=== PATIENT | female | born 1945 | race Caucasian/White ===

== ENCOUNTER → 2017-05-09 | Outpatient (CLI) | payer OTHER, MEDICARE ==
[~2017-05-09] MED LIST: ACETAMINOPHEN325 M1 PO; ALEVE220 MG PO; AMLODIPINE BESYL5 MG PO; ANTIVERT25 MG PO; ASPIRIN325 PO; B COMPLEX1 EAC1 PO; BENICAR HCT 401 EACH PO; BYSTOLIC 5 MG5 M1 PO; CALCIUM 600 +1 EA11 PO; CLOBETASOL PROP60 G3; CLONIDINE0.1 PO; CUTIVATE120 ML; FENOFIBRATE160 MG PO; KLOR-CON SPRIN10 MEQ PO; LOPRESSOR25 PO; PRILOSEC40 MG PO; VITAMIN D2000 UNIT PO; XANAX 0.25 MG0.25 MG PO; ZETIA10 MG PO; ZOFRAN ODT4 MG PO; ZPAK PO
== END ==
LOC: ULTRA 10:36
DX: E04.2 Nontoxic multinodular goiter (principal)

== ENCOUNTER → 2017-09-06 | Outpatient (CLI) | payer OTHER, MEDICARE | LOC: RAD 13:23 | DX: Z12.31 Encounter for screening mammogram for malignant neoplasm of breast (principal) ==

== ENCOUNTER → 2017-12-23 | Outpatient (CLI) | payer OTHER, MEDICARE ==
[~2017-12-23] VITALS: Ht 154.9 cm; Wt 88.9 kg
[~2017-12-23] MED LIST changes: +ALDACTONE25 MG PO; +CENTRUM SILVER1 EAC4 PO; +DEMADEX20 MG PO; +PLAVIX 75 MG TA75 M1 PO; +REPATHA SU140 MG/1 M SUBQ; +VITAMIN B-12500 MCG PO
--- NOTE | ~2017-12-23 | CATHLAB ---
[facility] [place] [address] INVASIVE PROCEDURE REPORT Name: FRANNIE MARIN Room #: [facility] [id number] Admission: 12/23/17 Attend Phys: Tulio Lyle, Discharge: Date of : 49 Date of Service: 12/27/17 0934 Report #: [id number] THIS REPORT FOR: //name// APPROVED REPORT Patient Details Patient Status: Out-Patient Room #: The patient is a 72 year-old female Event Personnel Tulio Lyle Marker Machine, Bibi Orozco, Ariel Miller Penny, Wes RN Procedures Performed Art Access - R femoral artery* 42192 Initial Mod Sed Same Phys/QHP Gr5y 201283 Left Heart Cath w/or w/o Coronaries [id number] [facility] Hemostasis w/ Mynx Aortogram Abdominal Peripheral Angio 197752 Procedure Narrative The patient was brought electively to the Cardiac Catheterization Laboratory and was prepped and draped in a sterile manner. The Right Groin^ was infiltrated with 1% Lidocaine subcutaneous anesthesia. A PINNACLE 6FR Sheath #[id number] sheath was inserted into the RFA^. Coronary angiography was performed using coronary diagnostic catheters. The right coronary system was accessed and visualized with a JR 4 catheter. The left coronary system was accessed and visualized with a JL 4 catheter. The left ventricle was accessed and visualized with a Pigtail catheter. Left ventriculogram was performed in [place] projection. An aortogram of the abdominal aorta was performed. Pre-demployment femoral angiogram was performed . Closure device was deployed with a 6 Fr Mynx. The patient tolerated the procedure well and there were no complications associated with the procedure. There was no hematoma. Intraoperative Conscious Sedation Sedation start time: 09:11 Case end Time: 09:31 Fentanyl 25 mcg Versed 1.5 mg Fluoro Time: 1.49 minutes Dose: DAP 4007.50 cGycm2 464 mGy Contrast Type and Amount: Visipaque 100 ml Hemodynamics [facility] [address] [place] [address] INVASIVE PROCEDURE REPORT Name: TOMASFRANNIE Hedy Room #: [facility]#: [id number] Admission: 12/23/17 Attend Phys: Tulio Lyle, Discharge: Date of : 49 Date of Service: 12/27/17 0934 Report #: [id number] The aortic pressure is 144/70 mmHg with a mean of 91 mmHg. The left ventricular pressure is 163/3 mmHg with a mean of mmHg. The left ventricular end diastolic pressure is 8 mmHg. Conclusion #1 normal left ventricular size with subtle inferior basilar hypokinesis EF 50% #2 abdominal aorta is mild distal narrowing with calcification not flow limiting. He giving rise to a patent iliac system right iliac previously stented #3 left main free of disease large giving rise to LAD and circumflex #4 LAD extends around the apex with eccentric 40% mid vessel lesion diffuse distal disease diagonal system moderately large with mild irregularity #5 nondominant circumflex artery moderate size with mild disease #6 dominant right coronary artery previously placed proximal stent with a 50-60% in-stent restenosis 60-70% proximal to the stent in the distal lesion of 70% to the stent giving rise to a mildly ectatic and mildly diseased vessel. Recommendations and plan we'll continue aggressive risk factor modification. We'll evaluate for inferior wall ischemia. This disease is at least a moderate nature but not clear that we intervention indicated. Recommending GI EGD to see and scope today if possible. No lifting for 48 hours no line tub Jacuzzi Montoya for a week. We'll arrange nuclear pharmacologic stress testing to evaluate for inferior wall ischemia. <ELECTRONICALLY SIGNED> By: Tulio Lyle MD, FACC 12/27/17 0934 Tulio Lyle MD, FACC /INF
--- NOTE | ~2017-12-23 | EKG ---
[place] [address] [address] [place] [address] ELECTROCARDIOGRAM REPORT Name: FRANNIE MARIN Room #: REG [facility]#: [id number] Admission: 12/23/17 Attend Phys: Tulio Lyle MD, Discharge: Date of : 49 Report #: [id number] THIS REPORT FOR: //name// [facility] Test Date: 2017-12-23 Test Time: 08:42:35 Pat Name: FRANNIE MARIN Department: Room: Gender: F Shipsmith: Britney JOHNSON : 1945 Requested By: Tulio Lyle Order Number: [id number] MD: Adarsh Torrez Measurements Intervals [place] Rate: 68 P: 67 [place]: 205 QRS: -4 QRSD: 162 T: 74 QT: 480 QTc: 511 Interpretive Statements Sinus rhythm Left bundle branch block Compared to ECG 12/28/2015 13:57:05 No significant change was found Electronically Signed On 12-23-2017 14:12:51 SPANISH LINGUIST by Adarsh Torrez [email or web address] <ELECTRONICALLY SIGNED> By: Adarsh Torrez MD, [facility] 12/23/17 1412 1 1 Adarsh Torrez MD, [facility] /EPI
[2017-12-23 07:29] VITALS: BP 145/70
[2017-12-23 07:55] LABS: HEMATOCRIT 37.5 % (37.0-47.0); HEMOGLOBIN 12.7 gm/dL (12.0-15.0); MCH 30.2 pg (26.0-34.0); MCHC 33.8 g/dL (28.0-37.0); MCV 89.3 fL (80.0-100.0); RBC 4.2 mil/uL (4.20-5.00); RDW 14.2 % (10.5-14.5); WBC 8.9 thou/uL (4.0-11.0)
[2017-12-23 08:09] LABS: CALCIUM 9.7 mg/dL (8.5-10.1); CREATININE 1.1 mg/dL (0.6-1.0)
== END ==
LOC: CATH 06:33
PROVIDERS: Internal Medicine Cardiovascular Disease
DX: I25.10 Atherosclerotic heart disease of native coronary artery without angina pectoris (principal); Z90.49 Acquired absence of other specified parts of digestive tract; Z98.890 Other specified postprocedural states; I10 Essential (primary) hypertension; Z87.891 Personal history of nicotine dependence; I21.3 ST elevation (STEMI) myocardial infarction of unspecified site; Z95.5 Presence of coronary angioplasty implant and graft; E78.5 Hyperlipidemia, unspecified; I73.9 Peripheral vascular disease, unspecified; K21.9 Gastro-esophageal reflux disease without esophagitis; J44.9 Chronic obstructive pulmonary disease, unspecified; E66.9 Obesity, unspecified

== ENCOUNTER → 2018-01-03 | Outpatient (CLI) | payer OTHER, MEDICARE ==
--- NOTE | ~2018-01-03 | S ---
[facility] [place] [address] SURGICAL PATH RPT PROCEDURE Name: KATIUSKA MARIN [id number] Admission: 01/03/18 Date of : 49 Discharge: Report #: [id number] Path Case #: [id number] PATHOLOGY REPORT COLLECTION DATE: 01/03/2018 RECEIVED DATE: 01/03/2018 SUBMITTING PHYS: Dr. Sammy Baxter OTHER PHYS: AMALIA Sandy SPECIMEN(S) RECEIVED: A.Biopsy of gastric rule out H pylori * * * * * * * * * * * * FINAL DIAGNOSIS: Gastric mucosa, gastric rule out H. pylori, endoscopic biopsy: - Mild reactive gastropathy. - Negative for intestinal metaplasia or atrophy. - Negative for Helicobacter pylori. COMMENT: Well controlled Helicobacter pylori immunohistochemical stain performed on block A1 - negative. (IUV:pit; 01/06/2018) PATHOLOGIST: Doris Villalba M.D. REPORT ELECTRONICALLY SIGNED BY: Doris Villalba M.D. DATE/TIME: 01/06/2018 14:49 * * * * * * * * * * * * GROSS PATHOLOGY: Received in formalin labeled "Katiuska Marin BX of gastric rule out H. pylori" and consists of 3 chirinos mucosal biopsies, 0.2-0.4 cm. The specimen is entirely submitted as A1. ([place]; 01/03/2018) CLINICAL HISTORY: Gastritis, acid reflux, nausea INITIAL CPT CODE(S): A; 45603, 79049 Professional services performed by [facility] at [facility] [address] , [place] [address] Technical services performed by [facility] at [address] [place] [address] [place] [address] SURGICAL PATH RPT PROCEDURE Name: KATIUSKA MARIN Room #: REG NATHALIA Head#: [id number] Admission: 01/03/18 Date of : 49 Discharge: Report #: [id number] Path Case #: [id number] [address]. [facility] [address] [address] PHONE: [phone] DIRECTOR: Grupo Yanes M.D. * * * END OF REPORT * * *
--- NOTE | ~2018-01-03 | P ---
[facility] [place] [address] PROCEDURE REPORT Name: TOMASFRANNIE Knott Room #: REG [facility].#: [id number] Admission: 01/03/18 Attend Phys: Sammy Pascual Discharge: Date of : 49 Report #: [id number] THIS REPORT FOR: //name// CC: Sammy Baxter [place] AMALIA [place] DATE OF SERVICE: 01/03/2018 PROCEDURE PERFORMED: Upper endoscopy with biopsies. HISTORY OF PRESENT ILLNESS: The patient is a 72-year-old female with a history of gastroesophageal reflux disease. Despite taking PPI therapy she has had breakthrough symptoms of heartburn on a regular basis. Previously was taking Prilosec 40 mg per day, which was not helpful; years ago had taken Protonix which was somewhat helpful; recently he was taking Dexilant which was helpful, but insurance would not cover and due to expense she is not going to be able to continue this. She has been taking aspirin and Plavix. Plavix was discontinued 2-3 months ago, but this did not help with her nausea, which is an ongoing symptom as well. She does take aspirin 325 mg on a daily basis as well for history of coronary artery disease, AR and stent placement in 2005. She reports her bowel movements have been normal. She denies any dysphagia. Plan is for upper endoscopy. DESCRIPTION OF PROCEDURE: The risks and benefits of the procedure were explained to the patient, those risks including but not limited to bleeding, perforation and the risk of sedation. She understood these risks and gave informed consent. Sedation was given using propofol per anesthesia. Next, using a standard Fujinon upper endoscope, the scope was placed in the patient's mouth and advanced under direct vision through the esophagus, stomach and into the second portion of the duodenum. The esophagus was normal throughout. The GE junction was normal. There was no evidence of esophagitis or Plata's esophagus. In the stomach, there was a mild gastritis. Biopsies were obtained to rule out H. pylori. No evidence of ulcerations or erosions. The pylorus was normal and patent. The duodenal bulb, first and second portion were all normal. The scope was then withdrawn and the procedure terminated. The patient tolerated the procedure well. IMPRESSION: 1. Mild gastritis. 2. Otherwise, normal upper endoscopy. RECOMMENDATIONS: 1. Await biopsy results. 2. We discussed switching to Prevacid 30 mg b.i.d. or Protonix 40 mg b.i.d. to see if this would control her reflux symptoms. [address] [address] PROCEDURE REPORT Name: FRANNIE MARIN Room #: REG [facility]#: [id number] Admission: 01/03/18 Attend Phys: Sammy Pascual Discharge: Date of : 49 Report #: [id number] Thank you for allowing me to participate in her care. <ELECTRONICALLY SIGNED> By: Sammy Baxter MD 01/06/18 0907 0837 0911 Sammy Baxter, /lobo
== END | disposition home or self-care (01) ==
LOC: GI 07:05
DX: K31.9 Disease of stomach and duodenum, unspecified (principal); K29.70 Gastritis, unspecified, without bleeding; K21.9 Gastro-esophageal reflux disease without esophagitis; I25.10 Atherosclerotic heart disease of native coronary artery without angina pectoris; I25.2 Old myocardial infarction; Z95.5 Presence of coronary angioplasty implant and graft; Z88.2 Allergy status to sulfonamides; Z88.8 Allergy status to other drugs, medicaments and biological substances; Z88.6 Allergy status to analgesic agent; Z79.82 Long term (current) use of aspirin; Z79.899 Other long term (current) drug therapy; Z98.890 Other specified postprocedural states
CPT/HCPCS: 62110; 62900

== ENCOUNTER → 2018-09-08 | Outpatient (CLI) | payer OTHER, MEDICARE | LOC: RAD 02:07 | DX: Z12.31 Encounter for screening mammogram for malignant neoplasm of breast (principal) ==

== ENCOUNTER → 2019-08-06 | Outpatient (CLI) | payer OTHER, MEDICARE | LOC: ULTRA 08:48 | DX: E04.2 Nontoxic multinodular goiter (principal) ==

== ENCOUNTER → 2019-09-08 | Outpatient (CLI) | payer OTHER, MEDICARE | LOC: RAD 01:21 | DX: Z12.31 Encounter for screening mammogram for malignant neoplasm of breast (principal) ==

== ENCOUNTER → 2020-06-08 | Outpatient (CLI) | payer OTHER, MEDICARE | LOC: SJCVC 12:05 | PROVIDERS: ATTEND Internal Medicine Cardiovascular Disease | DX: I11.9 Hypertensive heart disease without heart failure (principal); R94.31 Abnormal electrocardiogram [ECG] [EKG]; I25.10 Atherosclerotic heart disease of native coronary artery without angina pectoris; I73.9 Peripheral vascular disease, unspecified; M54.16 Radiculopathy, lumbar region; J44.9 Chronic obstructive pulmonary disease, unspecified; I44.7 Left bundle-branch block, unspecified; I10 Essential (primary) hypertension; E78.01 Familial hypercholesterolemia; I87.2 Venous insufficiency (chronic) (peripheral); E78.00 Pure hypercholesterolemia, unspecified; Z79.899 Other long term (current) drug therapy; Z79.82 Long term (current) use of aspirin; Z87.891 Personal history of nicotine dependence ==

== ENCOUNTER → 2020-07-04 | Outpatient (CLI) | payer OTHER, MEDICARE ==
[~2020-07-04] VITALS: Ht 154.9 cm; Wt 90.9 kg
[~2020-07-04] MED LIST changes: +PROTONIX40 M3 PO
[2020-07-04 12:32] VITALS: BP 147/69
[2020-07-04 12:45] LABS: HEMATOCRIT 33.8 % (37.0-47.0); HEMOGLOBIN 11.3 gm/dL (12.0-15.0); MCH 30.9 pg (26.0-34.0); MCHC 33.4 g/dL (28.0-37.0); MCV 92.7 fL (80.0-100.0); RBC 3.65 mil/uL (4.20-5.00); RDW 15.2 % (10.5-14.5); WBC 11.6 thou/uL (4.0-11.0)
[2020-07-04 12:52] LABS: CALCIUM 9.6 mg/dL (8.5-10.1); CREATININE 1.2 mg/dL (0.6-1.0); POTASSIUM 3.9 mmol/L (3.5-5.1)
== END | disposition home or self-care (01) ==
LOC: CATH 11:02
PROVIDERS: ATTEND Nuclear Medicine Nuclear Cardiology
DX: I87.1 Compression of vein (principal); I87.2 Venous insufficiency (chronic) (peripheral); I10 Essential (primary) hypertension; E78.5 Hyperlipidemia, unspecified; J44.9 Chronic obstructive pulmonary disease, unspecified; I73.9 Peripheral vascular disease, unspecified; I25.2 Old myocardial infarction; E66.09 Other obesity due to excess calories; K21.9 Gastro-esophageal reflux disease without esophagitis; Z98.890 Other specified postprocedural states; Z79.899 Other long term (current) drug therapy; Z90.49 Acquired absence of other specified parts of digestive tract; Z96.641 Presence of right artificial hip joint; Z87.891 Personal history of nicotine dependence; Z88.2 Allergy status to sulfonamides; Z88.8 Allergy status to other drugs, medicaments and biological substances

== ENCOUNTER → 2020-08-02 | Outpatient (CLI) | payer OTHER, MEDICARE | LOC: SJCVCIMAG 10:41 | PROVIDERS: ATTEND Nuclear Medicine Nuclear Cardiology | DX: I87.2 Venous insufficiency (chronic) (peripheral) (principal); I87.1 Compression of vein; I73.9 Peripheral vascular disease, unspecified; I44.7 Left bundle-branch block, unspecified; I10 Essential (primary) hypertension; I25.10 Atherosclerotic heart disease of native coronary artery without angina pectoris; E78.00 Pure hypercholesterolemia, unspecified; J44.9 Chronic obstructive pulmonary disease, unspecified; Z79.899 Other long term (current) drug therapy; Z87.891 Personal history of nicotine dependence ==

== ENCOUNTER → 2020-12-09 | Outpatient (CLI) | payer OTHER, MEDICARE | LOC: SJCVCIMAG 08:54 | PROVIDERS: ATTEND Internal Medicine Cardiovascular Disease | DX: I08.3 Combined rheumatic disorders of mitral, aortic and tricuspid valves (principal); R94.31 Abnormal electrocardiogram [ECG] [EKG]; I11.9 Hypertensive heart disease without heart failure; I25.10 Atherosclerotic heart disease of native coronary artery without angina pectoris; I44.7 Left bundle-branch block, unspecified; E78.01 Familial hypercholesterolemia; I87.2 Venous insufficiency (chronic) (peripheral); J44.9 Chronic obstructive pulmonary disease, unspecified; I77.9 Disorder of arteries and arterioles, unspecified; E78.00 Pure hypercholesterolemia, unspecified; I73.9 Peripheral vascular disease, unspecified; Z90.49 Acquired absence of other specified parts of digestive tract; Z98.890 Other specified postprocedural states; Z95.828 Presence of other vascular implants and grafts; Z88.8 Allergy status to other drugs, medicaments and biological substances; Z79.82 Long term (current) use of aspirin; Z79.899 Other long term (current) drug therapy; Z87.891 Personal history of nicotine dependence; Z82.49 Family history of ischemic heart disease and other diseases of the circulatory system ==

== ENCOUNTER → 2020-12-13 | Outpatient (CLI) | payer OTHER, MEDICARE | LOC: SJCVCIMAG 07:30 | PROVIDERS: ATTEND Internal Medicine Cardiovascular Disease | DX: I25.10 Atherosclerotic heart disease of native coronary artery without angina pectoris (principal); I49.3 Ventricular premature depolarization; I44.7 Left bundle-branch block, unspecified; Z79.899 Other long term (current) drug therapy; Z87.891 Personal history of nicotine dependence ==

== ENCOUNTER → 2021-07-31 | Outpatient (CLI) | payer OTHER, MEDICARE | LOC: SJCVC 14:03 | PROVIDERS: ATTEND Internal Medicine Cardiovascular Disease | DX: R94.31 Abnormal electrocardiogram [ECG] [EKG] (principal); I45.4 Nonspecific intraventricular block; I25.10 Atherosclerotic heart disease of native coronary artery without angina pectoris; I10 Essential (primary) hypertension; E78.00 Pure hypercholesterolemia, unspecified; I44.7 Left bundle-branch block, unspecified; J44.9 Chronic obstructive pulmonary disease, unspecified; I87.2 Venous insufficiency (chronic) (peripheral); Z79.899 Other long term (current) drug therapy; Z87.891 Personal history of nicotine dependence; Z88.5 Allergy status to narcotic agent; Z88.2 Allergy status to sulfonamides; Z88.1 Allergy status to other antibiotic agents ==

== ENCOUNTER → 2021-08-07 | Outpatient (CLI) | payer OTHER, MEDICARE | LOC: BC 08:39 | PROVIDERS: ATTEND Nurse Practitioner | DX: Z12.31 Encounter for screening mammogram for malignant neoplasm of breast (principal); N63.11 Unspecified lump in the right breast, upper outer quadrant; N63.42 Unspecified lump in left breast, subareolar ==

== ENCOUNTER → 2021-08-09 | Outpatient (CLI) | payer OTHER, MEDICARE | LOC: SJCVC 12:57 | PROVIDERS: ATTEND Nuclear Medicine Nuclear Cardiology | DX: I87.2 Venous insufficiency (chronic) (peripheral) (principal); I87.1 Compression of vein; I77.9 Disorder of arteries and arterioles, unspecified; I25.10 Atherosclerotic heart disease of native coronary artery without angina pectoris; I10 Essential (primary) hypertension; J44.9 Chronic obstructive pulmonary disease, unspecified; E78.00 Pure hypercholesterolemia, unspecified; Z79.82 Long term (current) use of aspirin; Z79.899 Other long term (current) drug therapy; Z88.5 Allergy status to narcotic agent; Z88.2 Allergy status to sulfonamides; Z88.8 Allergy status to other drugs, medicaments and biological substances; Z87.891 Personal history of nicotine dependence ==

== ENCOUNTER → 2021-08-09 | Outpatient (CLI) | payer OTHER, MEDICARE | LOC: ULTRA 13:35 | PROVIDERS: ATTEND Nurse Practitioner | DX: N60.01 Solitary cyst of right breast (principal); N60.02 Solitary cyst of left breast; R92.8 Other abnormal and inconclusive findings on diagnostic imaging of breast ==

== ENCOUNTER → 2021-08-10 | Outpatient (CLI) | payer OTHER, MEDICARE | LOC: ULTRA 09:04 | PROVIDERS: ATTEND Nurse Practitioner | DX: R92.8 Other abnormal and inconclusive findings on diagnostic imaging of breast (principal) ==

== ENCOUNTER → 2021-08-21 | Outpatient (CLI) | payer OTHER, MEDICARE ==
--- NOTE | 2021-09-11 09:06 | PATH ---
[facility] [place] [address] PATHOLOGY RPT PROCEDURE Name: FRANNIE MARIN Room #: REG [facility].#: [id number] Admission: 08/21/21 Date of : 49 Discharge: Report #: [id number] Path Case #: [id number] [facility] Accession Number: [id number] . 01 Material submitted: . breast - LEFT BREAST NODULE. Modifiers: left . 01 Clinical history: . US GUIDED BIOPSY LEFT BREAST NODULE . 02 Diagnosis: Breast tissue, 7:00, 2 cm from nipple, needle biopsy: - Invasive ductal carcinoma, histologic grade 2 (see Cancer Case Summary). . (SCA:gerson; 08/23/2021) . . CASE SUMMARY: (INVASIVE CARCINOMA OF THE BREAST: Biopsy) . SPECIMEN Procedure ___ Needle biopsy . Specimen Laterality ___ Left . TUMOR +Tumor Site Specify Clock Position ___ 7 o'clock ___ Specify distance from nipple in centimeters: 2 cm . Histologic Type ___ Invasive carcinoma of no special type (ductal) . Histologic Grade (Ashlee Histologic Score) Glandular (Acinar) / Tubular Differentiation ___ Score 3 (less than 10% of tumor area forming glandular / tubular structures) . Nuclear Pleomorphism ___ Score 2 (Cells larger than normal with open vesicular nuclei, visible nucleoli, and moderate variability in both size and shape) . Mitotic Rate ___ Score 1 . Overall Grade [facility] [address] [place] [address] PATHOLOGY RPT PROCEDURE Name: FRANNIE MARIN Room #: REG [facility].Josr.#: [id number] Admission: 08/21/21 Date of : 49 Discharge: Report #: [id number] Path Case #: [id number] ___ Grade 2 (scores of 6 or 7) . Ductal Carcinoma In Situ (DCIS) ___ Not identified . SPECIAL STUDIES +Breast Biomarker Studies pending, results will be reported as an addendum. MBR 08/23/2021 1639 Local . 02 Comment: Immunohistochemical stains were performed on block A1. The tumor cells are positive for E-cadherin and the p63 and myosin are negative for myoepithelial cells. The findings support the above diagnosis. . Dr. Vivi Ortega co-reviewed this case on 08/23/[address] Nigel Louis was notified of the results on 08/23/2021 at 4:20 p.m. . (SCA:grocery stock clerk; 08/23/2021) . 02 Addendum: . Special studies report received from [facility], [address] [place] [address], [address], [place], [address], on case [id number], labeled with their number [id number], dated 09/01/2021. . Breast Predictive/Prognostic Marker Analysis . . Specimen Site: Lt Breast, 7:00, 2 cm FN, Breast Carcinoma (Biopsy) Specimen ID #: [id number] . ER (Estrogen Receptor) Positive Percent: 95.00 % Analysis: Manual Staining Intensity: Strong Internal Control: Present and Positive Comments: The area of carcinoma is nearly completely exhausted in the sections examined. The above score is based on the small focus of carcinoma that is still present in the specimen. . HI (Progesterone Receptor) Positive Percent: 95.00 % Analysis: Manual Staining Intensity: Strong [facility] [address] [place] [address] PATHOLOGY RPT PROCEDURE Name: FRANNIE MARIN [facility] [id number] Admission: 08/21/21 Date of : 49 Discharge: Report #: [id number] Path Case #: [id number] Internal Control: Present and Positive Comments: The area of carcinoma is nearly completely exhausted in the sections examined. The above score is based on the small focus of carcinoma that is still present in the specimen. . HER2 No Result - See Comment . Analysis: Manual Comments: The area of carcinoma was exhausted in the deeper sections, thus precluding reporting of HER2 by IHC. . Ki-67 No Result - See Comment . Analysis: Manual Comments: The area of carcinoma was exhausted in the deeper sections, thus precluding reporting of Ki67 by IHC. . Time to Fixation (Cold Ischemic Time): Immediate Duration of Fixation: 12 hours Type of Fixative: 10% Neutral Buffered Formalin . at [facility]. Sheryl Eldridge M.D. Pathologist . Methodology: The HER2 Receptor protein expression is analyzed using the [place] HER2 rabbit monoclonal antibody (clone [id number]). This assay is used for diagnostic determination of the HER2 protein over-expression in paraffin embedded, formalin fixed breast cancer tissue on the [employer] Benchmark. The specimen is processed using a secondary antibody-HRP conjugate detection system. The membrane staining of the tumor is determined either by manual score or image analysis. This antibody is intended for in vitro diagnostic use. The score is reported as 0, 1+, 2+, or 3+. This test is used for clinical purposes. . A rabbit monoclonal antibody (clone SP1) that recognized the Estrogen Receptor is used to perform immunohistochemistry on routinely fixed (formalin) paraffin embedded tissue on the [employer] Benchmark. The specimen is processed using a secondary antibody-HRP conjugate detection system. The percentage of stained tumor nuclei is determined either manually or by image analysis. This test is intended for in vitro diagnostic use. This test is used for clinical purposes. . A rabbit monoclonal antibody (clone 1E2) that recognized the Progesterone [address] [address] PATHOLOGY RPT PROCEDURE Name: RICHY MARINKaren Knott Room #: REG CL [facility]#: [id number] Admission: 08/21/21 Date of : 49 Discharge: Report #: [id number] Path Case #: [id number] Receptor is used to perform immunohistochemistry on routinely fixed (formalin) paraffin embedded tissue on the [employer] Benchmark. The specimen is processed using a secondary antibody-HRP conjugate detection system. The percentage of stained tumor nuclei is determined either manually or by image analysis. This test is intended for in vitro diagnostic use. This test is used for clinical purposes. . A rabbit monoclonal antibody (clone 30-9) that recognized Ki67 is used to perform immunohistochemistry on routinely fixed (formalin) paraffin embedded tissue on the [employer] Benchmark. The specimen is processed using a secondary antibody-HRP conjugate detection system. The percentage of stained tumor nuclei is determined either manually or by image analysis. This test is intended for in vitro diagnostic use. This test is used for clinical purposes. . Intended Use: This antibody is intended for in vitro diagnostic (IVD) use. HER2 (4B5) is a rabbit monoclonal antibody intended for the semi-quantitative detection of HER2 antigen in sections of formalin-fixed, paraffin embedded neoplastic tissue. . This antibody is intended for in vitro diagnostic (IVD) use. Estrogen Receptor (ER) (SP1) is a rabbit monoclonal antibody (IgG) that is intended for the qualitative detection of estrogen receptor (ER) antigen in sections of formalin-fixed, paraffin-embedded tissue. ER is a rabbit monoclonal antibody that recognizes human estrogen receptor alpha. . This antibody is intended for in vitro diagnostic (IVD) use. Progesterone Receptor (HI) (1E2) is a rabbit monoclonal antibody (IgG) that is intended for the qualitative detection of progesterone receptor (HI) antigen in sections of formalin fixed, paraffin embedded tissue. HI is a rabbit monoclonal antibody that recognizes the A and B forms of the human progesterone receptor. . This antibody is intended for in vitro diagnostic (IVD) use. Ki-67 (30-9) is a rabbit monoclonal antibody (IgG) directed against C-terminal portion of Ki-67 antigen. Staining for Ki-67 can be used to aid in assessing the proliferative activity of normal and neoplastic tissue. Ki-67 is a nuclear protein expressed in proliferating cells. During the cell cycle, the Ki-67 antigen is present in the G1, S, G2 and M phase but is absent in the G0 (quiescent phase). . Disclaimer: This Test was performed by [facility]. at [address], [address]. . [facility] is a business unit of [facility]. a wholly-owned subsidiary of [facility] of [address] [address] PATHOLOGY RPT PROCEDURE Name: FRANNIE MARIN Room #: REG [facility].#: [id number] Admission: 08/21/21 Date of : 49 Discharge: Report #: [id number] Path Case #: [id number] [employer]. . This assay has not been validated on decalcified tissues. Results should be interpreted with caution if this specimen was decalcified given the likelihood of false negativity on decalcified specimens. . Any image(s) that accompany this report is/are a personal banking representative image(s) only and should not be used to render a diagnosis. . This interpretation is contingent on the specimen and the clinical information received. . For any special tests/stains performed, known positive cells or tissues are tested with each marker and examined to ensure positivity. Positive and negative internal controls, if present, react appropriately. . This analysis is an adjunct to the evaluation of the referring physician and does not represent a final diagnosis. . The immunohistochemistry tests performed at [facility] were validated on tissue fixed in 10% neutral buffered formalin. The performance characteristics of the tests performed on tissue processed in other fixatives is not known. . HER2 testing at [facility] is performed in compliance with the 2018 updated ASCO/CAP Clinical Practice Guideline Focused Update. If the result is EQUIVOCAL (2+), it must be confirmed by an alternative assay such as FISH. . REFERENCE: Pretty MALIK, David HERZOGH, Danielle KH, et al: Human epidermal growth factor receptor 2 testing in breast cancer: ASCO/CAP clinical practice guideline focused update. Arch Pathol Lab Med. 2018;142:0406-5900. . HER2 and ER/HI ASCO/CAP guidelines require fixation in neutral buffered formalin for a minimum of 6 and a maximum of 72 hours. Fixation times less than 6 hours may not adequately preserve cell proteins. Fixation times longer than 72 hours may cause excess cross-linking of proteins reducing the antigen available for staining. Either scenario can cause reduced staining; hence false negative results are possible and should be considered for these situations if the HER2 IHC score is less than 3+ or ER or HI is negative (no staining or <1% positive). It is recommended that specimens fixed longer than 72 hours with HER2 IHC scores less than 3+ be confirmed by HER2 FISH. The time from biopsy/excision to fixation in formalin (cold ischemic time) must be less than 1 hour. Time to fixation (cold ischemic time) greater than 1 hour should be interpreted with caution. HER2 testing, mainly HER2 by FISH, is particularly vulnerable since excessive cold ischemic time results in preferential loss of HER2 [address] [address] PATHOLOGY RPT PROCEDURE Name: RICHY MARINA Hedy Room #: REG [facility] Head#: [id number] Admission: 08/21/21 Date of : 49 Discharge: Report #: [id number] Path Case #: [id number] probe signals that may lead to false negative results. Use of unstained slides cut more than 6 weeks before analysis is not recommended. . ER/PgR testing at [facility]. is performed in compliance with the ASCO/CAP Clinical Practice Guidelines. If the result for ER is less than 1% it is reported as Negative; if the ER result is 1-10% it is reported as Low Positive; if the ER result is greater than 10% it is reported as Positive. If the result for PgR is less than 1% it is reported as Negative; if the PgR result is equal to or greater than 1%, it is reported as Positive. . REFERENCE: Danielle MOJICA, David PRICE, Benjamín M,et al. Estrogen and progesterone receptor testing in breast cancer. ASCO/CAP guideline update. Arch Pathol Lab Med. 2020;144:545-563. . . SCORE STAINING PATTERN IN TUMOR CELLS INTERPRETATION RESULTS 0 No staining observed or incomplete, faint membrane staining in less than or equal to 10% of tumor cells. Negative 1+ Incomplete, faint membrane staining in greater than 10% of tumor cells. Negative 2+ Weak to moderate complete membrane staining observed in greater than 10% of tumor cells. Equivocal* *Must be confirmed by alternative assay (IHC/FISH/Dual LINDSAY) 3+ Intense, complete membrane staining in greater than 10% of tumor cells. Positive Performing Labs: This Test was performed at [facility]. at [address] [place] [address] [address], [place], [address]. . [facility] is a business unit of [facility]. a wholly-owned subsidiary of [employer]. . A complete copy of the report is on file. . Professional and Technical services performed by [facility]. at [address], [facility] [address], [place] [address]. . (CLW:jaime 09/04/2021) . [address] [place] [address] PATHOLOGY RPT PROCEDURE Name: FRANNIE MARIN Room #: REG [facility] M.R.#: [id number] Admission: 08/21/21 Date of : 49 Discharge: Report #: [id number] Path Case #: [id number] AZJ/09/08/2021 Addendum Electronically Signed by Kori Mccoy MD, Pathologist . 02 Electronically signed: . Artemio Jackson DO, Pathologist NPI- [id number] . 01 Gross description: . The specimen is received in formalin, labeled "Frannie Marin, LT. breast 7:00 2 cmfn" and consists of at least 7 previously fragmented fatty fibrotic needle core biopsies (ranging in length from 0.5 cm to 2.0 cm and each averaging 0.2 cm in diameter). The specimen is submitted entirely in A1-A3. The cold ischemic time is less than 60 seconds. The total time in formalin is 12 hours. ([place]; 08/21/2021) DKA/DKA 08/21/2021 1442 Local . 02 Pathologist provided ICD-10: C50.912 . 02 CPT . 444334, J00330, Q89977 Performed at: 01 [facility] [address] [id number] MD Tomas Medrano MD Phone: [phone] Performed at: [address] [facility] [place] [id number] MD Grupo Yanes MD Phone: [phone]
== END | disposition home or self-care (01) ==
LOC: ULTRA 08:58
PROVIDERS: ATTEND Nurse Practitioner
DX: C50.912 Malignant neoplasm of unspecified site of left female breast (principal); R92.1 Mammographic calcification found on diagnostic imaging of breast; Z98.890 Other specified postprocedural states; Z79.899 Other long term (current) drug therapy; Z88.2 Allergy status to sulfonamides; Z88.8 Allergy status to other drugs, medicaments and biological substances